=== PATIENT | female | born 1970 | race Caucasian/White ===

== ENCOUNTER 2023-08-30 22:45 | Inpatient (IN) | payer OTHER ==
[~2023-08-30] VITALS: Ht 162.6 cm; Wt 52.2 kg
[2023-08-31 02:37] LABS: BASOPHILS % (AUTO) 0.7 % (0.0-2.0); EOSINOPHILS # (AUTO) 0.1 K/uL (0.0-0.7); EOSINOPHILS % (AUTO) 2.8 % (0.0-6.0); HEMATOCRIT 32 % (33-45); HEMOGLOBIN 10.5 g/dL (11.5-14.8); LYMPHOCYTES # (AUTO) 1.5 K/uL (0.8-4.8); LYMPHOCYTES % (AUTO) 29.1 % (20.0-44.0); MEAN CORPUSCULAR HEMOGLOBIN 38 PG (26.0-33.0); MEAN CORPUSCULAR HGB CONC 33 g/dl (31.0-36.0); MEAN CORPUSCULAR VOLUME 113 fL (82-100); MONOCYTES # (AUTO) 0.5 K/uL (0.1-1.30); NEUTROPHILS # (AUTO) 2.9 K/uL (1.8-8.9); NEUTROPHILS % (AUTO) 57.4 % (43.0-81.0); PLATELET COUNT (AUTO) 117 K/uL (150-450); RED BLOOD CELL COUNT(AUTO) 2.79 MIL/uL (4.0-5.2); RED CELL DISTRIBUTION WIDTH 13.1 % (11.5-15.0)
[2023-08-31 02:42] LABS: CALCIUM, SERUM 9.7 mg/dL (8.5-10.1); CARBON DIOXIDE 14 mmol/L (21-32); CHLORIDE 99 mmol/L (98-107); CREATININE 1.1 mg/dL (0.6-1.3); GLUCOSE 113 mg/dL (74-106); POTASSIUM 3.6 mmol/L (3.5-5.1); SODIUM SERUM 134 mmol/L (136-145); UREA NITROGEN, BLOOD 8 mg/dL (7-18)
[2023-08-31 02:49] LABS: ALANINE AMINOTRANSFERASE 23 U/L (12-78); ALCOHOL, BLOOD < 3 mg/dL (0-10); ALKALINE PHOSPHATASE 65 U/L (46-116); ASPARTATE AMINOTRANSFERASE 38 U/L (15-37); BILIRUBIN,DIRECT 0.3 mg/dL (0.0-0.2); TOTAL PROTEIN, SERUM 7.7 g/dL (6.4-8.2)
[2023-08-31 02:50] LABS: ACETAMINOPHEN <10 ug/ml (10-30); SALICYLATE 0.4 mg/dL (2.8-20.0)
[2023-08-31] MEDS ORDERED: LORAZEPAM INJ 2 MG/ML VIAL ONE (02:51)
[2023-08-31] MEDS ORDERED: Thiamine 100 MG/ML VIAL ONE (02:51)
[2023-08-31] MEDS ORDERED: Thiamine 100 MG in IV D5W 50 ML IV SCH (03:00)
[2023-08-31] MEDS ORDERED: LORAZEPAM INJ 2 MG/ML VIAL IV ONE (03:00)
[2023-08-31] MEDS ORDERED: IV NS 0.9% 1,000 ML BAG IV ONE (03:00)
[2023-08-31] MEDS ORDERED: LORAZEPAM INJ 2 MG/ML VIAL IV PRN (05:00)
[2023-08-31] MEDS ORDERED: MORPHINE SULFATE INJ 2 MG/ML DISP.SYRIN IV PRN (05:00)
[2023-08-31] MEDS ORDERED: hydrALAZINE HCL IV 20 MG VIAL IV PRN (05:00)
[2023-08-31] MEDS ORDERED: ACETAMINOPHEN 325 MG TABLET PO PRN (05:00)
[2023-08-31] MEDS ORDERED: ONDANSETRON HCL/PF 4 MG/2 ML VIAL IVP PRN (05:00)
[2023-08-31] MEDS: CHLORDIAZEPOXIDE HCL 25 MG CAPSULE PO SCH ×4 (07:35→17:13)
[2023-08-31] MEDS: IV D5/0.45 NACL 1,000 ML IV SCH ×3 (07:35→20:40)
[2023-08-31] MEDS: LACTULOSE 10 G/15 ML UDC (PYXIS) PO SCH ×3 (07:38→17:13)
[2023-08-31] MEDS ORDERED: LACTULOSE 10 G/15 ML UDC (PYXIS) ONE ×3 (07:55→17:09)
[2023-08-31] MEDS ORDERED: CHLORDIAZEPOXIDE HCL 25 MG CAPSULE ONE ×4 (07:56→17:09)
[2023-08-31 08:43] LABS: APPEARANCE,URINE CLEAR (CLEAR); BILIRUBIN,URINE NEGATIVE (NEGATIVE); BLOOD, URINE TRACE-INTA Ery/uL (NEGATIVE); COLOR,URINE YELLOW (YELLOW); KETONES,URINE NEGATIVE (NEGATIVE); LEUKOCYTE ESTERASE ,URINE TRACE (NEGATIVE); NITRITE, URINE NEGATIVE (NEGATIVE); PROTEIN,URINE NEGATIVE (NEGATIVE); UGLUCOSE NEGATIVE (NEGATIVE); UROBILINOGEN,URINE 0.2 EU/dL (0.2)
[2023-08-31] MEDS ORDERED: ESTR1TAB PO (08:56)
[2023-08-31] MEDS ORDERED: ALBU18HF2 IH (08:56)
[2023-08-31] MEDS ORDERED: ONDA8TAB65 PO (08:56)
[2023-08-31] MEDS ORDERED: GABA300C PO (08:56)
[2023-08-31] MEDS ORDERED: TRAZ-257 PO (08:56)
[2023-08-31] MEDS ORDERED: CLON0.1T PO (08:56)
[2023-08-31] MEDS ORDERED: METH750T3 PO (08:56)
[2023-08-31] MEDS ORDERED: ATOR40TA PO ×2 (08:56)
[2023-08-31] MEDS ORDERED: THIA100T74 PO (08:56)
[2023-08-31] MEDS ORDERED: FLUO10TA PO (08:56)
[2023-08-31] MEDS ORDERED: HYDR50TA61 PO (08:56)
[2023-08-31] MEDS ORDERED: METO25TA4 PO (08:56)
[2023-08-31] MEDS ORDERED: LORA-259 PO ×3 (08:56)
[2023-08-31] MEDS ORDERED: FOLI0.8T3 PO (08:56)
[2023-08-31 09:01] LABS: AMPHETAMINE, URINE NEGATIVE (NEGATIVE); BARBITURATE, URINE NEGATIVE (NEGATIVE); BENZODIAZEPINE, URINE NEGATIVE (NEGATIVE); CANNABINOID, URINE NEGATIVE (NEGATIVE); COCCAINE, URINE NEGATIVE (NEGATIVE); OPIATE, URINE NEGATIVE (NEGATIVE); PHENCYCLIDINE SCREEN,URINE NEGATIVE (NEGATIVE)
[2023-08-31 09:15] LABS: ADD URINE CULTURE NO; BACTERIA,URINE Rare /HPF (None Seen); RBC,URINE 0-2 /HPF (0-2); SQUAMOUS EPITHELIAL CELL,UR Rare /HPF (None Seen); WBC,URINE 0-2 /HPF (0-3)
[2023-08-31] MEDS: HEPARIN SODIUM, PORCINE 5000 UNITS/1 ML VIAL SQ SCH ×2 (09:35→20:42)
[2023-08-31] MEDS ORDERED: CLONIDINE HCL 0.1 MG TABLET PO PRN (15:00)
[2023-08-31] MEDS ORDERED: METHOCARBAMOL (750MG) 750 MG TABLET PO PRN (15:00)
[2023-08-31] MEDS ORDERED: GABAPENTIN 300 MG CAPSULE PO PRN (15:00)
[2023-08-31] MEDS ORDERED: ONDANSETRON 4 MG TAB.RAPDIS PO PRN (15:30)
[2023-08-31] MEDS ORDERED: TRAZODONE 50 MG TABLET PO PRN (15:30)
[2023-08-31] MEDS ORDERED: ALBUTEROL FS 2.5 MG/3 ML VIAL.NEB NEB PRN (16:00)
[2023-08-31] MEDS ORDERED: METOPROLOL SUCCINATE 25 MG TAB.SR.24H ONE (17:10)
[2023-08-31] MEDS: METOPROLOL SUCCINATE 25 MG TAB.SR.24H PO SCH (17:14)
[2023-08-31 18:45] VITALS: BP 135/86; TEMP 98; O2SAT 97
[2023-08-31 20:00] VITALS: BP 135/88; TEMP 97.8; O2SAT 98
[2023-09-01] VITALS: BP 101/80; TEMP 97.7; O2SAT 96
[2023-09-01 04:00] VITALS: BP 131/84; TEMP 97.7; O2SAT 95
[2023-09-01 07:17] LABS: BASOPHILS % (AUTO) 1.2 % (0.0-2.0); EOSINOPHILS # (AUTO) 0.2 K/uL (0.0-0.7); EOSINOPHILS % (AUTO) 4.5 % (0.0-6.0); HEMATOCRIT 29 % (33-45); HEMOGLOBIN 9.6 g/dL (11.5-14.8); LYMPHOCYTES # (AUTO) 0.8 K/uL (0.8-4.8); LYMPHOCYTES % (AUTO) 23.1 % (20.0-44.0); MEAN CORPUSCULAR HEMOGLOBIN 38 PG (26.0-33.0); MEAN CORPUSCULAR HGB CONC 34 g/dl (31.0-36.0); MEAN CORPUSCULAR VOLUME 112 fL (82-100); MONOCYTES # (AUTO) 0.3 K/uL (0.1-1.30); MONOCYTES % (AUTO) 8.8 % (2.0-12.0); NEUTROPHILS # (AUTO) 2.1 K/uL (1.8-8.9); NEUTROPHILS % (AUTO) 62.4 % (43.0-81.0); PLATELET COUNT (AUTO) 105 K/uL (150-450); RED BLOOD CELL COUNT(AUTO) 2.55 MIL/uL (4.0-5.2); RED CELL DISTRIBUTION WIDTH 12.9 % (11.5-15.0); WHITE BLOOD COUNT (AUTO) 3.4 K/uL (4.3-11.0)
[2023-09-01 07:41] LABS: ALBUMIN 3.1 g/dL (3.4-5.0); BILIRUBIN,TOTAL 0.6 mg/dL (0.2-1.0); CALCIUM, SERUM 8.6 mg/dL (8.5-10.1); CREATININE 0.7 mg/dL (0.6-1.3); MAGNESIUM 1.5 mg/dL (1.8-2.4); PHOSPHORUS 3.8 mg/dL (2.5-4.9); TOTAL PROTEIN, SERUM 6.3 g/dL (6.4-8.2)
[2023-09-01 07:43] LABS: POTASSIUM 2.8 mmol/L (3.5-5.1)
[2023-09-01 08:00] VITALS: BP 138/87; TEMP 98.6; O2SAT 96
[2023-09-01] MEDS ORDERED: POTASSIUM CHLORIDE 20 MEQ TAB.PRT.SR PO ONE ×2 (08:00→16:30)
[2023-09-01] MEDS ORDERED: Fluoxetine 10 mg capsule PO SCH (09:00)
[2023-09-01] MEDS ORDERED: ATORVASTATIN 40 MG TABLET PO SCH (09:00)
[2023-09-01] MEDS: LACTULOSE 10 G/15 ML UDC (PYXIS) PO SCH ×2 (09:05→17:36)
[2023-09-01] MEDS: METOPROLOL SUCCINATE 25 MG TAB.SR.24H PO SCH ×2 (09:06→17:36)
[2023-09-01] MEDS: CHLORDIAZEPOXIDE HCL 25 MG CAPSULE PO SCH (09:06)
[2023-09-01] MEDS: HEPARIN SODIUM, PORCINE 5000 UNITS/1 ML VIAL SQ SCH (09:07)
[2023-09-01] MEDS ORDERED: IV D5/0.45 NACL 1,000 ML IV PRN (09:22)
[2023-09-01] MEDS ORDERED: MAGNESIUM OXIDE 400 MG TABLET PO ONE (11:00)
[2023-09-01 11:50] VITALS: BP 113/79; TEMP 97.4; O2SAT 98
[2023-09-01 17:36] VITALS: BP 142/85
== END 2023-09-01 17:47 | DRG 896 ==
LOC: ER 23:07 → TRANSITION 08-31 05:11 → TELE 08-31 17:56
PROVIDERS: ADMIT Internal Medicine; ATTEND Internal Medicine
DX: F10.151 Alcohol abuse with alcohol-induced psychotic disorder with hallucinations (principal); G93.41 Metabolic encephalopathy; E87.1 Hypo-osmolality and hyponatremia; Y90.0 Blood alcohol level of less than 20 mg/100 ml; I10 Essential (primary) hypertension; Z88.0 Allergy status to penicillin; Z91.018 Allergy to other foods; F10.10 Alcohol abuse, uncomplicated; D63.8 Anemia in other chronic diseases classified elsewhere; D69.6 Thrombocytopenia, unspecified
CPT/HCPCS: 36415; 80048-TC; 80053-TC; 80076-TC; 81001; 82140-TC; 82962-TC; 83605-TC; 83735-TC; 84100-TC; 84132-TC; 85025-TC; A4223; G0378; G0480; J1644; J2060; J3411; J3490; J7030; J7060